=== PATIENT | female | born 1965 | race Caucasian/White ===

== ENCOUNTER 2017-12-29 00:32 | Emergency (ER) | payer OTHER ==
[~2017-12-29] VITALS: Ht 167.6 cm; Wt 63.5 kg
[2017-12-29] MEDS ORDERED: GABA800 PO (00:48)
[2017-12-29] MEDS ORDERED: CITA20 PO (01:16)
[2017-12-29] MEDS ORDERED: Veetids 500500 MG PO (01:16)
== END 2017-12-29 01:28 | disposition home or self-care (01) ==
LOC: ER 00:32
DX: K02.9 Dental caries, unspecified (principal); F41.9 Anxiety disorder, unspecified; F32.9 Major depressive disorder, single episode, unspecified; I10 Essential (primary) hypertension; F17.210 Nicotine dependence, cigarettes, uncomplicated; Z88.5 Allergy status to narcotic agent; Z88.8 Allergy status to other drugs, medicaments and biological substances; Z79.899 Other long term (current) drug therapy